=== PATIENT | female | born 1945 | race Caucasian/White ===

== ENCOUNTER 2024-12-06 17:04 | Observation (INO) | payer MEDICARE, OTHER ==
[2024-12-06] MEDS ORDERED: Sodium Chloride 0.9% 10 ML Syringe FLUSH PRN (17:16)
[2024-12-06 17:21] LABS: BASOPHILS ABSOLUTE AUTO 0.02 K/uL (0.00-0.20); BASOPHILS PERCENT AUTO 0.2 % (0.0-2.0); EOSINOPHILS ABSOLUTE AUTO 0.01 K/uL (0.00-0.50); EOSINOPHILS PERCENT AUTO 0.1 % (0.0-5.0); IMMATURE GRAN ABSOLUTE AUTO 0.02 10^3/uL (0.00-0.04); IMMATURE GRAN PERCENT AUTO 0.2 % (0.0-0.4); LYMPHOCYTES ABSOLUTE AUTO 0.88 K/uL (0.50-3.50); LYMPHOCYTES PERCENT AUTO 8.8 % (10.0-50.0); MONOCYTES ABSOLUTE AUTO 0.57 K/uL (0.00-1.00); MONOCYTES PERCENT AUTO 5.7 % (2.0-14.0); NEUTROPHILS ABSOLUTE AUTO 8.51 K/uL (1.40-7.00); NEUTROPHILS PERCENT AUTO 85.0 % (45.0-80.0); PLATELET COUNT,PLT 273 K/uL (150-350); RED BLOOD CELL COUNT 4.70 M/uL (3.77-5.09); RED CELL DISTRIBUTION WIDTH 11.8 % (11.2-14.1); WHITE BLOOD CELL COUNT,WBC 10.0 K/uL (4.0-10.2)
[2024-12-06 17:42] LABS: ALANINE AMINOTRANSFERASE,ALT 29 U/L (12-78); ASPARTATE AMNIOTRANSFERASE,AST 48 U/L (15-37); BILIRUBIN TOTAL 0.6 mg/dL (0.2-1.0); BLOOD UREA NITROGEN,BUN 19 mg/dL (7-18); CARBON DIOXIDE,CO2 21.6 mmol/L (21.0-32.0); CHLORIDE,CL 100 mmol/L (98-107); CREATINE KINASE,CK 304 U/L (26-308); CREATININE 0.74 mg/dL (0.51-1.17); GLUCOSE RANDOM 115 mg/dL (70-99); POTASSIUM,K 3.9 mmol/L (3.5-5.1); PROTEIN TOTAL,TP 7.4 g/dL (6.4-8.2); SODIUM,NA 137 mmol/L (136-145)
[2024-12-06 17:46] LABS: ESTIMATED GFR 83 mL/min (>=60)
[2024-12-06] MEDS ORDERED: LORazepam 2 MG/ML SDV IVPUSH PRN (19:38)
[2024-12-06] MEDS ORDERED: Ondansetron 4 MG/2 ML SDV IVPUSH PRN (19:39)
[2024-12-06] MEDS ORDERED: Naloxone 0.4 MG/ML SDV IVPUSH PRN (19:39)
[2024-12-06 20:40] LABS: APPEARANCE,URINE CLEAR (CLEAR)
[2024-12-06 20:41] LABS: GLUCOSE,URINE NEGATIVE (NEGATIVE)
[2024-12-06 20:42] LABS: OCCULT BLOOD,URINE TRACE-INTACT (NEGATIVE)
[2024-12-06 20:43] LABS: SQUAMOUS EPITHELIAL CELLS,UR FEW /HPF (NOT SEEN)
[2024-12-07] MEDS: Acetaminophen/HYDROcodone 325-5 MG Tab PO PRN (17:38)
== END 2024-12-08 15:05 | disposition home or self-care (01) ==
LOC: LL.ED 17:04 → LL.MS 18:15
PROVIDERS: ADMIT Emergency Medicine; ATTEND Emergency Medicine
DX: S32.010A Wedge compression fracture of first lumbar vertebra, initial encounter for closed fracture (principal); R41.89 Other symptoms and signs involving cognitive functions and awareness; I10 Essential (primary) hypertension; R53.1 Weakness; R29.6 Repeated falls; W01.0XXA Fall on same level from slipping, tripping and stumbling without subsequent striking against object, initial encounter
CPT/HCPCS: 36415; 51701; 70450; 71045; 72131; 72148; 72170; 80053; 81001; 82550; 83605; 83735; 85025; 96360; 97161-GP; 97165-GO; 97535-GO; 99223; 99233; 99239; 99285-25; A9270-GY; G0378; J7030

== ENCOUNTER 2024-12-19 13:25 | Emergency (ER) | payer MEDICARE, OTHER ==
[2024-12-19 14:26] LABS: BASOPHILS ABSOLUTE AUTO 0.03 K/uL (0.00-0.20); BASOPHILS PERCENT AUTO 0.4 % (0.0-2.0); EOSINOPHILS ABSOLUTE AUTO 0.07 K/uL (0.00-0.50); EOSINOPHILS PERCENT AUTO 1.0 % (0.0-5.0); IMMATURE GRAN ABSOLUTE AUTO 0.01 10^3/uL (0.00-0.04); IMMATURE GRAN PERCENT AUTO 0.1 % (0.0-0.4); LYMPHOCYTES ABSOLUTE AUTO 1.09 K/uL (0.50-3.50); LYMPHOCYTES PERCENT AUTO 15.7 % (10.0-50.0); MONOCYTES ABSOLUTE AUTO 0.34 K/uL (0.00-1.00); MONOCYTES PERCENT AUTO 4.9 % (2.0-14.0); NEUTROPHILS ABSOLUTE AUTO 5.39 K/uL (1.40-7.00); NEUTROPHILS PERCENT AUTO 77.9 % (45.0-80.0); PLATELET COUNT,PLT 253 K/uL (150-350); RED BLOOD CELL COUNT 4.71 M/uL (3.77-5.09); RED CELL DISTRIBUTION WIDTH 12.3 % (11.2-14.1); WHITE BLOOD CELL COUNT,WBC 6.9 K/uL (4.0-10.2)
[2024-12-19] MEDS: Take Home: oxyCODONE HCl 5 MG Tab, 5 Tab Pack PO ONE (14:41)
[2024-12-19 14:51] LABS: ALANINE AMINOTRANSFERASE,ALT 36.0 U/L (12-78); ASPARTATE AMNIOTRANSFERASE,AST 24.0 U/L (15-37); BILIRUBIN TOTAL 0.4 mg/dL (0.2-1.0); BLOOD UREA NITROGEN,BUN 10.0 mg/dL (7-18); CARBON DIOXIDE,CO2 25.7 mmol/L (21.0-32.0); CHLORIDE,CL 104.0 mmol/L (98-107); CREATININE 0.71 mg/dL (0.51-1.17); EST CRCL DRUG DOSING (CG) 54.89 mL/min; GLUCOSE RANDOM 79.0 mg/dL (70-99); POTASSIUM,K 4.2 mmol/L (3.5-5.1); PROTEIN TOTAL,TP 7.3 g/dL (6.4-8.2); SODIUM,NA 139.0 mmol/L (136-145)
[2024-12-19 15:03] LABS: ESTIMATED GFR 88.0 mL/min (>=60)
== END 2024-12-19 15:40 | disposition home or self-care (01) ==
LOC: LL.ED 13:25
DX: M54.50 Low back pain, unspecified (principal); I10 Essential (primary) hypertension
CPT/HCPCS: 36415; 80053; 85025; 99283; A9270